=== PATIENT | male | born 1985 | race Caucasian/White ===

== ENCOUNTER 2019-01-13 09:01 | Emergency (ER) | payer SELFPAY ==
[~2019-01-13] VITALS: Ht 177.8 cm; Wt 69.5 kg
[~2019-01-13 09:01] MED LIST: AMOXICILLIN 50500 MG PO; BENADRYL50 MG PO; NO HOME MEDICATIONS; NORCO 325 MG-51 TAB PO; PEPCID 20MG TAB20 MG PO; PREDNISONE20 MG PO; VENTOLIN0.09 MG IH; ZITHROMAX 250M250 MG PO; ZITHROMAX Z PA250 MG PO; ZOFRAN ODT4 MG PO
[2019-01-13 09:05] VITALS: BP 131/83; PULSE 89; TEMP 97.1
[2019-01-13] MEDS ORDERED: PREDNISONE20 MG PO (09:44)
== END 2019-01-13 09:59 | disposition home or self-care (01) ==
LOC: COL.ER 09:01
DX: S63.502A Unspecified sprain of left wrist, initial encounter (principal); L23.7 Allergic contact dermatitis due to plants, except food; F17.210 Nicotine dependence, cigarettes, uncomplicated; F12.90 Cannabis use, unspecified, uncomplicated; V19.9XXA Pedal cyclist (driver) (passenger) injured in unspecified traffic accident, initial encounter